=== PATIENT | female | born 1960 | race Caucasian/White ===

== ENCOUNTER 2018-03-26 11:59 | Emergency (ER) | payer OTHER ==
[~2018-03-26] VITALS: Ht 154.9 cm; Wt 68.0 kg
[2018-03-26 12:24] VITALS: BP_SYST 182
[2018-03-26] MEDS ORDERED: DIPHENHYDRAMINE INJ 50 MG/ML VIAL IVP ONE (13:00)
[2018-03-26 13:08] LABS: BILIRUBIN,URINE NEGATIVE (NEGATIVE); BLOOD, URINE NEGATIVE (NEGATIVE); CLARITY/URINE CLEAR (CLEAR); COLOR,URINE YELLOW (YELLOW); GLUCOSE,URINE NEGATIVE (NEGATIVE); KETONES,URINE NEGATIVE (NEGATIVE); LEUKOCYTE ESTERASE ,URINE 2+ (NEGATIVE); NITRITE, URINE NEGATIVE (NEGATIVE); PROTEIN URINE NEGATIVE (NEGATIVE); UROBILINOGEN,URINE 0.2 (0.2-1.0)
[2018-03-26] MEDS ORDERED: LIDOCAINE 4% TOPICAL 50 ML BOTTLE MM ONE (13:15)
[2018-03-26] MEDS: MORPHINE 4 MG/ML INJ. SYRINGE IVP ONE ×2 (13:21→13:26)
[2018-03-26 13:22] LABS: RBC,URINE 0-3 /HPF (0-3)
[2018-03-26 13:23] LABS: BACTERIA,URINE FEW /HPF (None Seen); MUCUS,URINE None Seen /LPF (None Seen); YEAST,URINE None Seen /HPF (None Seen)
[2018-03-26 13:24] LABS: BASOPHILS # (AUTO) 0.1 K/uL (0.0-0.2); BASOPHILS % (AUTO) 0.9 % (0.0-2.0); EOSINOPHILS # (AUTO) 0.3 K/uL (0.0-0.4); EOSINOPHILS % (AUTO) 5.1 % (0.0-4.0); HEMATOCRIT 43.8 % (36-48); HEMOGLOBIN 14.4 g/dL (12.0-16.0); LYMPHOCYTES # (AUTO) 2.1 K/uL (1.0-5.5); LYMPHOCYTES % (AUTO) 33.5 % (20.5-51.5); MEAN CORPUSCULAR HEMOGLOBIN 31 pg (27-31); MEAN CORPUSCULAR HGB CONC 33 % (32-36); MEAN CORPUSCULAR VOLUME 93 fL (79.0-98.0); MONOCYTES # (AUTO) 0.3 K/uL (0.0-1.0); MONOCYTES % (AUTO) 5.1 % (1.7-9.3); NEUTROPHILS # (AUTO) 3.6 K/uL (1.8-7.7); NEUTROPHILS % (AUTO) 55.4 % (40.0-70.0); PLATELET COUNT (AUTO) 268 K/uL (130-430); RED BLOOD CELL COUNT(AUTO) 4.72 MIL/uL (4.2-6.2); RED CELL DISTRIBUTION WIDTH 12.6 % (9.0-15.0); WHITE BLOOD COUNT (AUTO) 6.4 K/uL (4.8-10.8)
[2018-03-26 13:39] LABS: CALCIUM 9.6 mg/dL (8.4-11.0); CREATININE 0.59 mg/dL (0.55-1.30); POTASSIUM 3.5 mmol/L (3.5-5.1)
[2018-03-26 13:41] LABS: PROTHROMBIN TIME 10.2 SECS (9.5-12.5)
[2018-03-26 13:43] LABS: TOTAL BILIRUBIN 0.5 mg/dL (0.0-1.0)
[2018-03-26 14:40] VITALS: BP_SYST 150
== END 2018-03-26 14:40 | disposition home or self-care (01) ==
LOC: SED 11:59
DX: T16.2XXA Foreign body in left ear, initial encounter (principal); E78.5 Hyperlipidemia, unspecified; X58.XXXA Exposure to other specified factors, initial encounter; Y93.89 Activity, other specified; Y92.89 Other specified places as the place of occurrence of the external cause; Y99.8 Other external cause status
CPT/HCPCS: 36415; 74176; 80053; 81000; 83605; 83690; 85025; 85610; 87040; 87086; 96374; 99285; J1200; J2270